=== PATIENT | female | born 1975 | race Caucasian/White ===

== ENCOUNTER → 2019-09-16 | Outpatient (CLI) | payer BC ==
--- NOTE | 2019-09-17 13:38 | MM ---
Reason for exam: screening (asymptomatic). Last mammogram was performed 4 years and 6 months ago. History: Family history of breast cancer in maternal grandmother at age 70. Physical Findings: A clinical breast exam by your physician is recommended on an annual basis and results should be correlated with mammographic findings. MG Screening Mammo w CAD Bilateral CC, MLO, and XCCL view(s) were taken. Prior study comparison: March 25, 2015, bilateral MG screening mammo w CAD. There are scattered fibroglandular densities. Benign appearing bilateral calcifications. No suspicious abnormality. No significant changes when compared with prior studies. ASSESSMENT: Benign, BI-RAD 2 RECOMMENDATION: Routine screening mammogram of both breasts in 1 year.
== END | disposition home or self-care (01) ==
LOC: RADMAMWWP 09:05
PROVIDERS: ATTEND Family Medicine
DX: Z12.31 Encounter for screening mammogram for malignant neoplasm of breast (principal)
CPT/HCPCS: 77067

== ENCOUNTER → 2021-10-06 | Outpatient (CLI) | payer BC ==
--- NOTE | 2021-10-10 10:38 | MM ---
Reason for exam: screening (asymptomatic). Last mammogram was performed 2 years and 1 month ago. History: Family history of breast cancer in mother at age 70 and breast cancer in maternal grandmother at age 70. Physical Findings: A clinical breast exam by your physician is recommended on an annual basis and results should be correlated with mammographic findings. MG Screening Mammo w CAD Bilateral CC and MLO view(s) were taken. CV view(s) were taken of the left breast. Prior study comparison: September 16, 2019, bilateral MG screening mammo w CAD. March 25, 2015, bilateral MG screening mammo w CAD. There are scattered fibroglandular densities. There are benign appearing round calcifications bilaterally. There is no discrete abnormality. ASSESSMENT: Benign, BI-RAD 2 RECOMMENDATION: Routine screening mammogram of both breasts in 1 year.
== END | disposition home or self-care (01) ==
LOC: RADMAMWWP 08:05
PROVIDERS: ATTEND Family Medicine
DX: Z12.31 Encounter for screening mammogram for malignant neoplasm of breast (principal); Z80.3 Family history of malignant neoplasm of breast
CPT/HCPCS: 77067

== ENCOUNTER → 2023-08-06 | Outpatient (CLI) | payer BC ==
[2023-08-06 13:20] VITALS: BP 156/90; PULSE 69; RESP 16; TEMP 98.1; BMI 51.5
--- NOTE | 2023-08-06 14:03 | P.BASOAP ---
Subjective Progress Note Date: 08/06/23 Principal diagnosis: Morbid obesity 48-year-old female known to our service. Patient underwent laparoscopic band placement around 2008. She has had intermittent dysphagia for years but over the last 1 year she has had worsening dysphagia to the point that she even has fluid gets stuck occasionally. Describes chronic heartburn. Regurgitation every other day. Mild upper abdominal pain at times. No recent imaging. Objective - Vital Signs Vital signs: Vital Signs Temp 98.1 F 08/06/23 12:58 Pulse 69 08/06/23 12:58 Resp 16 08/06/23 12:58 BP 156/90 08/06/23 12:58 Pulse Ox FiO2 Intake & Output 08/05/23 08/06/23 08/06/23 18:59 06:59 18:59 Weight 136.078 kg - Exam Abdomen: Soft, nontender, nondistended Assessment/Plan (1) Morbid obesity Narrative/Plan: 48-year-old female with morbid obesity, band intolerance, GERD symptoms, dysphagia. Patient also due for screening colonoscopy. Will proceed with upper and lower endoscopy to evaluate the band. Patient is considering band removal or conversion. We discussed the options of [facility] referral to discuss possible gastric bypass. In the meanwhile we will empty the patient's band. The patient's lap band port was palpated. The site was aseptically prepped. The Matta needle was advanced into the port. A total of 4 cc ml of fluid was removed. Pressure was held and a sterile dressing was applied. Plan: Date: 08/06/23 Initial Weight: 136.078 kg Initial BMI: 51.5 Current Weight: 136.078 kg Current BMI: 51.5 Type of Surgery: Adjustable Gastric Banding Total Volume in Band: 0 Previous Volume: Volume Removed: 4 Volume Added: Band Size:
== END ==
LOC: BARWHC3 12:44
PROVIDERS: ATTEND Surgery
DX: E66.01 Morbid (severe) obesity due to excess calories (principal); K21.9 Gastro-esophageal reflux disease without esophagitis; R13.10 Dysphagia, unspecified; Z46.51 Encounter for fitting and adjustment of gastric lap band; Z98.84 Bariatric surgery status; Z68.43 Body mass index [BMI] 50.0-59.9, adult
CPT/HCPCS: 43999

== ENCOUNTER → 2023-12-27 | Outpatient (CLI) | payer BC ==
--- NOTE | 2024-01-01 09:39 | MM ---
Reason for Exam: Screening (asymptomatic). Last mammogram was performed 2 year(s) and 3 month(s) ago. Patient History: Menarche at age 12. Patient has no children. Maternal grandmother had breast cancer, age 70. Mother had breast cancer, age 70. Last menstrual period: 11/07/2023 Risk Values: Yolette 5 year model risk: 1.7%. NCI Lifetime model risk: 15.5%. Prior Study Comparison: 03/25/2015 Bilateral Screening Mammogram, [facility]. 09/16/2019 Bilateral Screening Mammogram, [facility]. 10/06/2021 Bilateral Screening Mammogram, [facility]. Tissue Density: There are scattered areas of fibroglandular density. Findings: Analyzed By CAD. There is no suspicious group of microcalcifications or new suspicious mass in either breast. Overall Assessment: Negative, BI-RAD 1 Management: Screening Mammogram of both breasts in 1 year. . Patient should continue monthly self-breast exams. A clinical breast exam by your physician is recommended on an annual basis. This exam should not preclude additional follow-up of suspicious palpable abnormalities. Note on Yolette scores and lifetime risk: 1. A Yolette score greater than 3% is considered moderate risk. If this is the case, consider specialist referral to assess eligibility for a risk reducing agent. 2. If overall lifetime risk for the development of breast cancer is 20% or higher, the patient may qualify for future screening with alternating mammogram and breast MRI. Electronically signed and approved by: John Hoang M.D. Radiologis
== END | disposition home or self-care (01) ==
LOC: RADMAMWWP 08:18
PROVIDERS: ATTEND Family Medicine
DX: Z12.31 Encounter for screening mammogram for malignant neoplasm of breast (principal); Z80.3 Family history of malignant neoplasm of breast
CPT/HCPCS: 77063; 77067

== ENCOUNTER 2024-01-14 11:47 | Day surgery (SDC) | payer BC ==
[2024-01-10 15:37] VITALS: BMI 48.0
[2024-01-14 13:13] VITALS: TEMP 97.8
[2024-01-14] MEDS: LACTATED RINGERS 1,000 ML IV SCH (13:24)
[2024-01-14] MEDS: IV FLUID CONTINUATION 1,000 ML IV ONE (13:26)
[2024-01-14] MEDS ORDERED: MIDAZOLAM 2 MG/2 ML VIAL ONE (13:31)
[2024-01-14] MEDS ORDERED: LIDOCAINE 2% (PF) 20 MG/ML 5 ML VIAL ONE (13:31)
[2024-01-14] MEDS ORDERED: PROPOFOL 10 MG/ML 20 ML VIAL IV ONE (13:31)
--- NOTE | 2024-01-14 13:41 | P.GSHP ---
History of Present Illness H&P Date: 01/14/24 Chief Complaint: GERD, dysphagia, screening 48-year-old female known to our service. Patient with previous Lap-Band placement. Last seen in the bariatric center in July. Her band was emptied. The patient's complaints of dysphagia improved however did not go away compl etely. Still taking Nexium daily. Still with mild reflux. Patient is due for screening colonoscopy. Mild chronic constipation. Past Medical History Past Medical History: GERD/Reflux Additional Past Medical History / Comment(s): migraines History of Any Multi-Drug Resistant Organisms: None Reported Additional Past Surgical History / Comment(s): lap band. 2009-fluid removed,EGD,donaldo tubes ears Past Anesthesia/Blood Transfusion Reactions: No Reported Reaction Additional Past Anesthesia/Blood Transfusion Reaction / Comment(s): woke up with severe headache Smoking Status: Never smoker - Past Family History Mother Family Medical History: Cancer Additional Family Medical History / Comment(s): breast CA Medications and Allergies Home Medications Medication Instructions Recorded Confirmed Type Escitalopram [Lexapro] 20 mg PO HS 08/15/23 01/10/24 History Esomeprazole Magnesium [NexIUM] 20 mg PO HS 08/15/23 01/10/24 History buPROPion SR [Wellbutrin SR] 150 mg PO HS 08/15/23 01/10/24 History modafiniL [Provigil] 200 mg PO DAILY 08/15/23 01/14/24 History Ibuprofen [Motrin] 600 mg PO Q8HR PRN 01/10/24 01/10/24 History Rimegepant Sulfate [Nurtec Odt] 75 mg PO Q2D 01/10/24 01/14/24 History Allergies Allergy/AdvReac Type Severity Reaction Status Date / Time No Known Allergies Allergy Verified 01/14/24 13:05 Surgical - Exam Vital Signs Temp Pulse Resp BP Pulse Ox 97.8 F 78 16 1523/88 95 01/14/24 13:11 01/14/24 13:11 01/14/24 13:11 01/14/24 13:11 01/14/24 13:11 Physical exam: General: Well-developed, well-nourished HEENT: Normocephalic, sclerae nonicteric Abdomen: Nontender, nondistended Extremities: No edema Neuro: Alert and oriented Assessment and Plan (1) GERD (gastroesophageal reflux disease) Narrative/Plan: Will proceed with upper and lower endoscopy Current Visit: Yes Status: Acute Code(s): K21.9 - GASTRO-ESOPHAGEAL REFLUX DISEASE WITHOUT ESOPHAGITIS SNOMED Code(s): 042856867
--- NOTE | 2024-01-14 13:58 | P.PCN ---
Date of Procedure: 01/14/24 Procedure(s) Performed: PREOPERATIVE DIAGNOSIS: GERD, screening POSTOPERATIVE DIAGNOSIS: Gastritis, gastric polyps, possible small hiatal hernia, PROCEDURE: 1. EGD with biopsy 2. Colonoscopy ANESTHESIA: MAC SURGEON: Nj Razo M.D. SPECIMENS: Antrum, gastric polyp ENDOSCOPIC PROCEDURE: The patient was on the endoscopy table in the left decubitus position. The Olympus gastroscope was inserted into the oropharynx and passed under direct visualization to the region of the third portion of the duodenum. From that point the scope was slowly withdrawn inspecting all surfaces carefully. There were no neoplastic inflammatory or polypoid lesions throughout the duodenum. The pylorus was widely patent. The stomach was carefully inspected. There was gastritis present with superficial erosion in the antrum. A biopsy of the antrum took place to rule out H. pylori. Patient had multiple small gastric polyps as well. One of the larger ones was removed using the cold biopsy forceps. Retroflexion revealed a normal band plication. No evidence of erosion was seen. Withdrawn to the esophagus took place. There may have been a small sliding hiatal hernia difficult to say given the presence of the band there. This may have simply been a dilated pouch. The remainder the esophagus was normal. The patient was kept on the endoscopy table in the left decubitus position. The Olympus colonoscope was inserted into the anus and passed under direct visualization to the base of the cecum. The appendiceal orifice was visualized. From that point the scope was slowly withdrawn inspecting all surfaces carefully. There were no neoplastic inflammatory or polypoid lesions throughout the cecum, ascending, transverse, descending, sigmoid and rectum. There was no visible diverticulosis noted. Digital rectal examination was normal. The patient was taken to the recovery room in stable condition per anesthesia guidelines. RECOMMENDATIONS: Resume diet. Await biopsy results. Continue antiacid therapy.
[2024-01-14 14:27] VITALS: BP 162/77; PULSE 75; RESP 16
== END 2024-01-14 14:39 | disposition home or self-care (01) ==
LOC: ORWHC2ENDO 11:47
PROVIDERS: ATTEND Surgery
DX: Z12.11 Encounter for screening for malignant neoplasm of colon (principal); K29.50 Unspecified chronic gastritis without bleeding; K31.7 Polyp of stomach and duodenum; K21.9 Gastro-esophageal reflux disease without esophagitis; F32.A Depression, unspecified; E66.01 Morbid (severe) obesity due to excess calories; G43.909 Migraine, unspecified, not intractable, without status migrainosus; Z79.899 Other long term (current) drug therapy
CPT/HCPCS: 88305; 45378; 43239; J2250; J2704; J2001; 88342

== ENCOUNTER → 2024-09-29 | Outpatient (CLI) | payer BC ==
[2024-09-29 13:39] VITALS: BP 173/81; PULSE 87; RESP 16; TEMP 97.8; BMI 56.9
--- NOTE | 2024-09-29 13:47 | P.BASOAP ---
Subjective Progress Note Date: 09/29/24 Principal diagnosis: Morbid obesity Patient returns for recheck. She was last seen last year. Patient had her band emptied with 4 cc removed. Patient still has intermittent dysphagia although better than before. Usually occurs maybe once per week and often with rice. No heartburn. Interested in band removal. Objective - Vital Signs Vital signs: Vital Signs Temp 97.8 F 09/29/24 13:32 Pulse 87 09/29/24 13:32 Resp 16 09/29/24 13:32 BP 173/81 09/29/24 13:32 Pulse Ox FiO2 Intake & Output 09/28/24 09/29/24 09/29/24 18:59 06:59 18:59 Weight 150.593 kg - Exam Abdomen: Soft, nontender, nondistended Assessment/Plan (1) Morbid obesity Narrative/Plan: 49-year-old female with band intolerance. Patient has complaints of frequent vomiting, pain at the port site, no appreciable weight loss despite band adjustments. Agree with medical's necessity of removing the patient's band at this time. Will schedule for laparoscopic Lap-Band removal, possible open. Patient will call back with dates. The risks of bleeding, infection, stenosis, stricture, leak, abscess, fistula formation, peritonitis, weight gain, reflux, vomiting, conversion to an open procedure, DC, PE, DVT, and were discussed. The patient understands and wishes to proceed. Plan: Date: 09/29/24 Initial Weight: 136.078 kg Initial BMI: 51.5 Current Weight: 150.593 kg Current BMI: 56.9 Type of Surgery: Adjustable Gastric Banding Total Volume in Band: 0 Previous Volume: Volume Removed: Volume Added: Band Size:
== END ==
LOC: BARWHC3 13:25
PROVIDERS: ATTEND Surgery
DX: E66.01 Morbid (severe) obesity due to excess calories (principal); Z68.43 Body mass index [BMI] 50.0-59.9, adult
CPT/HCPCS: 99211

== ENCOUNTER → 2025-01-21 | Outpatient (CLI) | payer BC ==
[2025-01-21 15:32] LABS: HCT 39.2 % (37.2-46.3); HGB 12.0 g/dL (12.0-15.0); MCH 24.1 pg (27.0-32.0); MCHC 30.6 g/dL (32.0-37.0); MCV 78.9 FL (80.0-97.0); NRBC Per 100 WBC 0 X 10*3/uL (0.00-0.01); Platelet Count 351 X 10*3/uL (140-440); RBC 4.97 X 10*6/uL (4.10-5.20); RDW 17.0 % (11.5-14.5); WBC 10.73 X 10*3/uL (4.50-10.00)
[2025-01-21 15:33] LABS: Basophils # (A) 0.06 X 10*3/uL (0.00-0.10); Basophils % (A) 0.6 %; Eosinophils # (A) 0.28 X 10*3/uL (0.04-0.35); Eosinophils % (A) 2.6 %; Immature Grans, Automated 0.70 %; Lymphocytes # (A) 1.68 X 10*3/uL (0.90-5.00); Lymphocytes % (A) 15.7 %; Monocytes # (A) 0.62 X 10*3/uL (0.20-1.00); Monocytes % (A) 5.8 %; Neutrophils # (A) 8.01 X 10*3/uL (1.80-7.70); Neutrophils % (A) 74.6 %
[2025-01-21 15:36] LABS: ALT 15 U/L (8-44); AST 15 U/L (13-35); Albumin 4.1 g/dL (3.8-4.9); Albumin/Globulin Ratio 1.78 Ratio (1.60-3.17); Alkaline Phosphatase 85 U/L (41-126); Anion Gap 11.10 mmol/L (4.00-12.00); BUN/Creat Ratio 23.75 Ratio (12.00-20.00); Blood Urea Nitrogen 19.0 mg/dL (9.0-27.0); Calcium 8.8 mg/dL (8.7-10.3); Carbon Dioxide 24.9 mmol/L (21.6-31.8); Chloride 104 mmol/L (96-109); Globulin 2.3 g/dL (1.6-3.3); Glucose 78 mg/dL (70-110); Potassium 4.5 mmol/L (3.5-5.5); Sodium 140 mmol/L (135-145); Total Protein 6.4 g/dL (6.2-8.2)
== END | disposition home or self-care (01) ==
LOC: LABWHC1 09:55
PROVIDERS: ATTEND Surgery
DX: Z01.812 Encounter for preprocedural laboratory examination (principal)
CPT/HCPCS: 36415; 80053; 85025; 93005

== ENCOUNTER 2025-01-29 07:38 | Day surgery (SDC) | payer BC ==
--- NOTE | 2025-01-29 07:36 | P.GSHP ---
History of Present Illness H&P Date: 01/29/25 Chief Complaint: Band intolerance 49-year-old female last seen in the bariatric center in September. Patient with persistent nausea vomiting, pain at the port site, dysphagia, GERD symptoms despite band being emptied. Patient interested in band removal which is reasonable. No acute changes. Past Medical History Past Medical History: GERD/Reflux, Osteoarthritis (OA) Additional Past Medical History / Comment(s): migraines History of Any Multi-Drug Resistant Organisms: None Reported Past Surgical History: Bariatric Surgery, Ear Surgery Additional Past Surgical History / Comment(s): lap band. EGD, donaldo tubes ears, colonoscopy Past Anesthesia/Blood Transfusion Reactions: No Reported Reaction Additional Past Anesthesia/Blood Transfusion Reaction / Comment(s): woke up with severe headache after lap band insertion; no hx blood transfusion. Smoking Status: Never smoker - Past Family History Mother Family Medical History: Cancer Additional Family Medical History / Comment(s): breast CA Father Family Medical History: CVA/TIA, Diabetes Mellitus, Dialysis, Renal Disease Medications and Allergies Home Medications Medication Instructions Recorded Confirmed Type Escitalopram [Lexapro] 20 mg PO HS 08/15/23 01/26/25 History Esomeprazole Magnesium [NexIUM] 20 mg PO HS 08/15/23 01/26/25 History buPROPion SR [Wellbutrin SR] 150 mg PO HS 08/15/23 01/26/25 History modafiniL [Provigil] 200 mg PO DIRECTED 08/15/23 01/26/25 History Ibuprofen [Motrin] 600 mg PO Q8HR PRN 01/10/24 01/26/25 History Tirzepatide [Zepbound] 5 mg SQ WE 01/26/25 01/26/25 History Ubrogepant [Ubrelvy] 100 mg PO DAILY PRN 01/26/25 01/26/25 History Allergies Allergy/AdvReac Type Severity Reaction Status Date / Time No Known Allergies Allergy Verified 01/26/25 08:12 Surgical - Exam Physical exam: General: Well-developed, well-nourished HEENT: Normocephalic, sclerae nonicteric Abdomen: Nontender, nondistended Extremities: No edema Neuro: Alert and oriented Assessment and Plan (1) Morbid obesity Narrative/Plan: 49-year-old female with Lap-Band intolerance. Will proceed with laparoscopic Lap-Band removal. The risks of bleeding, infection, stenosis, stricture, leak, abscess, fistula formation, peritonitis, weight gain, reflux, vomiting, conversion to an open procedure, [place], PE, DVT, and were discussed. The patient understands and wishes to proceed. Status: Acute Code(s): E66.01 - MORBID (SEVERE) OBESITY DUE TO EXCESS CALORIES SNOMED Code(s): 272036675
[~2025-01-29 07:38] MED LIST: LIDOCAINE 1% (10MG/ML) FOR IV START INTRADERMA PRN; droPERidol 2.5 MG/ML VIAL IVP ONE
[2025-01-29] MEDS: IV FLUID CONTINUATION 1,000 ML IV ONE (08:22)
[2025-01-29] MEDS: DEXAMETHASONE SOD PHOSPHATE 4 MG/ML 1 ML VIAL IV ONE (08:30)
[2025-01-29] MEDS: LACTATED RINGERS 1,000 ML IV SCH (08:30)
[2025-01-29] MEDS: ONDANSETRON 4 MG/2 ML VIAL IVP ONE (08:31)
[2025-01-29] MEDS ORDERED: KETOROLAC 30 MG/ML 1 ML VIAL ONE (09:07)
[2025-01-29] MEDS ORDERED: fentaNYL (PF) 50 MCG/ML 2 ML AMP ONE (09:07)
[2025-01-29] MEDS ORDERED: MIDAZOLAM 2 MG/2 ML VIAL ONE (09:07)
[2025-01-29] MEDS ORDERED: PROPOFOL 10 MG/ML 20 ML VIAL IV ONE (09:07)
[2025-01-29] MEDS ORDERED: NEOSTIGMINE 1 MG/ML 10 ML VIAL ONE (09:07)
[2025-01-29] MEDS ORDERED: LIDOCAINE 1% INJ 10MG/ML (20 ML MDV) ONE (09:07)
[2025-01-29] MEDS ORDERED: SUCCINYLCHOLINE CHLORIDE 200 MG/10 ML VIAL IV ONE (09:07)
[2025-01-29] MEDS ORDERED: ROCURONIUM 10 MG/ML (5 ML VIAL) IV ONE (09:07)
[2025-01-29] MEDS ORDERED: GLYCOPYRROLATE 0.2 MG/ML 2 ML VIAL ONE (09:07)
[2025-01-29] MEDS: BUPIVACAINE (PF) 0.25% 30 ML VIAL SQ ONE ×3 (09:43)
[2025-01-29] MEDS: LACTATED RINGERS 1,000 ML IV ONE (10:18)
[2025-01-29] MEDS ORDERED: HYDROmorphone 1 MG/ML 1 ML SYRINGE IVP PRN (10:34)
[2025-01-29] MEDS ORDERED: HYDROcodone/APAP 5-325MG 1 EACH TAB PO PRN (10:34)
[2025-01-29] MEDS ORDERED: ACETAMINOPHEN TAB 325 MG TAB PO PRN (10:34)
[2025-01-29] MEDS ORDERED: NALOXONE 0.4 MG/ML 1 ML VIAL IV PRN (10:34)
--- NOTE | 2025-01-29 10:38 | P.OP ---
Date of Procedure: 01/29/25 Procedure(s) Performed: PREOPERATIVE DIAGNOSIS: Band intolerance/abdominal pain POSTOPERATIVE DIAGNOSIS: Same PROCEDURE: Laparoscopic lap band removal SURGEON: Dung EBL: 10 ANESTHESIA: General COMPLICATIONS: None OPERATIVE PROCEDURE: The patient was brought and placed on the operating room table in the supine position. The patient was placed under general anesthesia at that time. The patient was then placed in lithotomy. The abdomen was prepped and draped in the usual sterile fashion. The previous port incision was localized and then incised using a scalpel. The port was easily excised using electrocautery. Entrance into the peritoneal cavity occurred using a 5 mm optical trocar through the old trocar entrance site. Insufflation took place to 15 mmHg. A right subxiphoid 5 mm trocar was placed. This was then removed and the medium Roberth hook was used to elevate the left lobe of the liver anteriorly. An additional 5 mm trocar was placed under direct visualization in the left lateral upper quadrant. The original 5 mm trocar was switched to a 15 mm trocar. A additional 5 mm trocar was placed in the right upper quadrant under direct dilatation. There were adhesions to the band in the buccal that were lysed using both the LigaSure and electrocautery. The band was then cut u sing the laparoscopic avi. The band was then removed easily in 2 portions through the 15 mm trocar site. The stomach itself was inspected and revealed no evidence of erosion or prolapse. The trochars were removed. The fascia at the 15 mm site was closed using a [id number] 0 Vicryl stitch. The subcutaneous tissues at the port site was closed using a 3-0 Vicryl suture. The skin at all 4 incision sites were closed using 4-0 Monocryl sutures. Steri-Strips and sterile dressings were then applied. DISPOSITION: Stable to recovery room
[2025-01-29 10:45] VITALS: TEMP 97.2
[2025-01-29 10:55] VITALS: RESP 16
[2025-01-29] MEDS: HYDROmorphone 0.5 MG/0.5 ML SYRINGE IVP PRN (10:58)
[2025-01-29 11:52] VITALS: PULSE 75
[2025-01-29 12:04] VITALS: BP 117/62
== END 2025-01-29 12:38 | disposition home or self-care (01) ==
LOC: OR 07:38
PROVIDERS: ATTEND Surgery
DX: E66.01 Morbid (severe) obesity due to excess calories (principal); K21.9 Gastro-esophageal reflux disease without esophagitis; G47.33 Obstructive sleep apnea (adult) (pediatric); G44.209 Tension-type headache, unspecified, not intractable; M19.90 Unspecified osteoarthritis, unspecified site; Z68.43 Body mass index [BMI] 50.0-59.9, adult; Z80.3 Family history of malignant neoplasm of breast; Z83.3 Family history of diabetes mellitus; Z82.3 Family history of stroke; Z79.899 Other long term (current) drug therapy
CPT/HCPCS: 43774; J2250; J0330; J1100; J2710; J0690; J2405; J2003; J3010; J1885; J2704; J1171; J0665; J1596

== ENCOUNTER → 2025-02-09 | Outpatient (CLI) | payer BC ==
[2025-02-09 12:58] VITALS: BP 122/80; PULSE 82; RESP 16; TEMP 97.8; BMI 51.8
--- NOTE | 2025-02-09 13:36 | P.BASOAP ---
Subjective Progress Note Date: 02/09/25 Principal diagnosis: Dysphagia, GERD Patient returns after recent laparoscopic Lap-Band removal. Doing well. Mild soreness at the band extraction site. Had 1 episode of dysphagia to shrimp although says it is much better than it used to be. No GERD symptoms. Objective - Vital Signs Vital signs: Vital Signs Temp 97.8 F 02/09/25 12:56 Pulse 82 02/09/25 12:56 Resp 16 02/09/25 12:56 BP 122/80 02/09/25 12:56 Pulse Ox FiO2 Intake & Output 02/08/25 02/09/25 02/09/25 18:59 06:59 18:59 Weight 136.985 kg - Exam Abdomen: Soft, nondistended, incisions clean and dry Assessment/Plan (1) Morbid obesity Narrative/Plan: 49-year-old female doing well after recent laparoscopic band removal. Gradually resume normal diet. May resume full activities 02/22. Follow-up with myself as needed. Plan: Date: 02/09/25 Initial Weight: 136.078 kg Initial BMI: 51.5 Current Weight: 136.985 kg Current BMI: 51.8 Type of Surgery: Total Volume in Band: 0 Previous Volume: Volume Removed: Volume Added: Band Size:
== END ==
LOC: BARWHC3 12:38
PROVIDERS: ATTEND Surgery
DX: E66.01 Morbid (severe) obesity due to excess calories (principal); Z68.43 Body mass index [BMI] 50.0-59.9, adult
CPT/HCPCS: 99211